=== PATIENT | born 1970 | race Caucasian/White ===

== ENCOUNTER → 2020-09-10 11:09 | Outpatient (CLI) | payer OTHER, SELFPAY ==
[2020-09-10 11:55] LABS: COVID19 -Nasal RAPID Negative
== END ==
PROVIDERS: PCP Nurse Practitioner Family; Referring Provider Internal Medicine; Visit Provider Internal Medicine
DX: Z20.822 Contact with and (suspected) exposure to COVID-19 (principal)
CPT/HCPCS: 87635; 94060; 94726; 94729; C9803

== ENCOUNTER → 2020-09-10 11:12 | Outpatient (CLI) | payer OTHER, SELFPAY ==
--- NOTE | 2020-09-15 11:16 | PM.PFT.1 ---
Pulmonary Function Test Referral & Results Date Patient Seen: 09/10/20 Requesting provider: Blaze Winter Results: The spirometry demonstrates an FVC of 3.86 L which is 98% of predicted. The FEV1 was measured at 3.04 L which is 98% of predicted. The FEV1/FVC ratio was 79 which is 98% of predicted. Following the administration of bronchodilator there was a 9% improvement in FEV1 and an 18% improvement in FEF 25-75%. Lung volumes show an SVC of 4.28 L which is 120% of predicted. The diffusing capacity was measured at 29.91 which is 105% of predicted. The maximum voluntary ventilation was reduced slightly Interpretation: this study demonstrates normal pulmonary function
== END ==
PROVIDERS: PCP Nurse Practitioner Family; Referring Provider Internal Medicine; Visit Provider Internal Medicine
DX: R06.09 Other forms of dyspnea (principal)
CPT/HCPCS: 94060; 94726; 94729